=== PATIENT | male | born 1965 | race Caucasian/White ===

== ENCOUNTER → 2022-11-13 15:06 | Outpatient (REF) | payer OTHER, SELFPAY ==
--- NOTE | 2022-11-13 15:16 | CA_ITS ---
Transthoracic Echocardiogram Patient (Last, First, Middle): Shaun Richter, Gender: Male Date of : 1965 Age: 57 Procedure Date: 11/13/2022 Procedure Type: Transthoracic Echocardiogram Location: [facility] Height: 185.42 cm Weight: 129.28 kg BSA: 2.50 m2 Heart Rate: bpm BP: 136 / 80 mmHg Manager Health: Referring MD: KIM HUTTON Symptoms: TIA G45.9, BUBBLE PERFORMED Study Quality: Adequate ECG Rhythm: Sinus Conclusions: - The left ventricular systolic function is low normal. The calculated ejection fraction is 52% by biplane method. - There is an interatrial septal aneurysm seen bowing to the left. - There is evidence of a patent foramen ovale with right to left shunting. - No obvious valvular pathology seen on this study. Findings Procedure Information Contrast agent, definity, is being given per protocol with complications as noted. The patient experienced back pain and an allergic reaction from contrast. Left Ventricle Normal left ventricular cavity size. There is moderately increased left ventricular wall thickness. The left ventricular systolic function is low normal. The calculated ejection fraction is 52% by biplane method. There is no evidence of regional wall motion abnormalities. Diastolic function is normal for age. Right Ventricle Mildly increased right ventricular cavity size. There is normal right ventricular systolic function. Atria The left atrium is mildly dilated. There is an interatrial septal aneurysm seen bowing to the left. Contrast study for right to left shunting is mildly positive. Contrast study for right to left shunting is moderately positive with Valsalva maneuver. There is evidence of a patent foramen ovale with right to left shunting. The right atrium is normal in size. Aortic Valve There is a normal trileaflet aortic valve. There is no aortic valve stenosis. There is no aortic valve regurgitation. Mitral Valve The mitral valve appears normal. There is trace mitral valve regurgitation. There is no mitral valve stenosis. Pulmonic Valve The pulmonic valve is likely normal. Tricuspid Valve Normal tricuspid valve structure. There is trace tricuspid valve regurgitation. There is no evidence of pulmonary hypertension. Great Vessels The asc aorta is normal in size. Venous The inferior vena cava is mildly dilated and collapses greater than 50% with inspiration. Pericardium/Pleural There is no evidence of pericardial effusion. Prior Study Comparison No prior study available for comparison. Recommendations, Care & Conclusions No obvious valvular pathology seen on this study. Measurements 2D Linear Measurements IVSd: 1.43 0.6-0.9/0.6-1.0 cm LVIDd: 5.57 3.9-5.3/4.2-5.9 cm LVIDd Index: 2.23 2.4-3.2/2.2-3.1 cm/m2 LVIDs: 3.40 2.0-3.6 cm LVPWd: 1.42 0.7-1.1 cm Ao Root: 3.80 2.1-3.5 cm LA Diam: 4.30 2.7-3.8/3.0-4.0 cm LAIDs Index: 1.72 1.5-2.3 cm/m2 LV Mass: 441.10 67-162/88-224 g LV Mass Index: 176.44 43-95/49-115 g/m2 LVOT Diam: 2.20 3.0+(-)1.3 cm 2D Systolic Function EF 4C: 55.40 >55% EF 2C: 39.40 >55% EF BiP: 52.00 >55% Mitral Valve MV Pk E: 0.90 MV PK A: 0.94 MV Decel Time: 241.00 E/A: 1.00 E'Lateral: 9.25 E'Medial: 6.20 E/E' Med: 14.60 E/E' Lat: 9.80 PHT: 70.00 MVA PHT: 3.14 Decel [place]: 3.76 Aortic Valve AoV Pk Adan: 1.84 AoV Mn Adan: 1.18 AoV VTI: 0.44 AoV Pk Grad: 14.00 Aov Mn Grad: 7.00 KALEE Cont.VTI: 2.32 LVOT LVOT Pk Adan: 1.15 LVOT Mn Adan: 0.76 LVOT VTI: 0.27 LVOT Pk Grad: 5.00 LVOT Mn Grad: 3.00 LVOT Diam: 2.20 LVOT Area: 3.80 Diastolic Function MV Pk E: 0.90 MV Pk A: 0.94 E/A: 1.00 E'Medial: 6.20 E/E' Med: 14.60 E' Laterial: 9.25 E/E' Lat: 9.80 Right Ventricle TAPSE (mm): 31.00 TVS' Adan: 14.00 Tricuspid Valve TR Pk Adan: 2.00 TR Pk Grad: 16.00 RA Press: 3.00 RVSP: 19.00 Great Vessels Aorta Ao Root-2D: 3.80 2.0-3.7 cm Ao Asc: 3.60 2.1-3.4 cm Pulmonary Valve PV Pk Adan: 0.98 Peak PV Grad: 4.00 Updated in Other Vendor System with Status of Final Salvador Ceron MD electronically signed on 11/14/2022 3:57:26 PM with status of Final
== END ==
LOC: HO.CARD 15:06
PROVIDERS: PCP Physician Assistant Medical; Visit Provider Physician Assistant Medical
DX: G45.9 Transient cerebral ischemic attack, unspecified (principal)
CPT/HCPCS: 93306; Q9957